=== PATIENT | female | born 2000 | race Caucasian/White ===

== ENCOUNTER 2018-03-13 23:11 | Emergency (ER) | payer BC ==
[~2018-03-13] VITALS: Ht 160 cm; Wt 75.0 kg
[2018-03-13 23:19] VITALS: BP 131/78; TEMP 99.1
[2018-03-14 00:21] LABS: COLLECTION METHOD CLEAN CATCH
[2018-03-14 00:36] LABS: MUCOUS Present /lpf; PH 7 (5-8); SQUAMOUS EPITHELIAL 0-2 /hpf; URINE APPEARANCE Hazy; URINE BACTERIA Rare /hpf; URINE BILIRUBIN Negative (NEGATIVE); URINE BLOOD 3+ (NEGATIVE); URINE COLOR Yellow; URINE GLUCOSE Negative (NEGATIVE); URINE KETONE Negative (NEGATIVE); URINE LEUKOCYTE ESTERASE 3+ (NEGATIVE); URINE NITRATE Negative (NEGATIVE); URINE PROTEIN(semi-quant) 2+ (NEGATIVE); URINE UROBILINOGEN Negative (NEGATIVE)
[2018-03-14] MEDS ORDERED: ZOFRAN ODT4 MG PO (01:06)
[2018-03-14] MEDS ORDERED: CIPRO 500MG TA500 MG PO (01:06)
[2018-03-14 01:18] VITALS: PULSE 98
== END 2018-03-14 01:19 | disposition home or self-care (01) ==
LOC: COL.ER 23:11
PROVIDERS: Physician Assistant
DX: N30.00 Acute cystitis without hematuria (principal)

== ENCOUNTER → 2018-08-20 | Outpatient (CLI) | payer BC ==
[~2018-08-20] MED LIST: CIPRO 500MG TA500 MG PO; ZOFRAN ODT4 MG PO
== END ==
LOC: COL.RAD 12:55
DX: S83.512A Sprain of anterior cruciate ligament of left knee, initial encounter (principal)